=== PATIENT | female | born 1995 | race American Indian/Alaskan Native ===

== ENCOUNTER 2020-06-15 09:53 | Emergency (ER) | payer SELFPAY ==
[2020-06-15 10:20] VITALS: BP 114/78
--- NOTE | 2020-06-15 11:11 | Emergency Department Report ---
ED General Adult HPI - General Chief complaint: Dental/Oral Stated complaint: TOOTH ACHE Time Seen by Provider: 06/15/20 11:00 Source: patient Mode of arrival: Ambulatory Limitations: No Limitations - History of Present Illness Initial comments: 24-year-old -[place] female patient presents with complaints of left upper dental pain x5 days. She reports she has had intermittent dental pain in the area for a year and had a cavity filled in the area about 6 to 7 months ago. Patient states the pain suddenly began again and Advil and naproxen are not helping. She rates her current pain as a 9/10 in severity. She denies any fever/chills/sweats, facial swelling, difficulty opening/closing her jaw, or dysphagia - Related Data Previous Rx's Medication Instructions Recorded Last Taken Type Acetaminophen/Codeine [Tylenol 1 tab PO Q6H PRN #12 tab 06/15/20 Unknown Rx /Codeine # 3 tab] Clindamycin [Clindamycin CAP] 300 mg PO Q6H 10 Days #40 capsule 06/15/20 Unknown Rx Allergies Allergy/AdvReac Type Severity Reaction Status Date / Time Penicillins Allergy Rash Verified 06/15/20 10:18 ED Review of Systems ROS: Stated complaint: TOOTH ACHE Other details as noted in HPI Constitutional: denies: chills, fever, malaise ENT: dental pain. denies: throat pain Respiratory: denies: cough, shortness of breath Gastrointestinal: denies: nausea, vomiting Skin: denies: change in color ED Past Medical Hx - Past Medical History Previous Medical History?: No - Surgical History Past Surgical History?: No - Medications Home Medications: Home Medications Medication Instructions Recorded Confirmed Last Taken Type Acetaminophen/Codeine [Tylenol 1 tab PO Q6H PRN #12 tab 06/15/20 Unknown Rx /Codeine # 3 tab] Clindamycin [Clindamycin CAP] 300 mg PO Q6H 10 Days #40 capsule 06/15/20 Unknown Rx ED Physical Exam - General Limitations: No Limitations General appearance: alert, in no apparent distress - Head Head exam: Present: atraumatic, normocephalic - Eye Eye exam: Present: normal appearance. Absent: scleral icterus - Expanded ENT Exam Expanded Mouth exam: Absent: drooling, trismus, muffled voice Teeth exam: Present: dental caries 1 - Dental Tenderness, Other (Deep dental decay noted mild surrounding erythema noted with tenderness to palpation no overlying facial swelling;) - Neck Neck exam: Present: normal inspection, full ROM. Absent: lymphadenopathy - Neurological Exam Neurological exam: Present: alert, oriented X3, normal gait - Psychiatric Psychiatric exam: Present: normal affect, normal mood - Skin Skin exam: Present: warm, dry, intact, normal color. Absent: rash ED Course Vital Signs 06/15/20 10:19 Temperature 98.5 F Pulse Rate 66 Respiratory 16 Rate Blood Pressure 114/78 [Right] O2 Sat by Pulse 99 Oximetry ED Medical Decision Making - Medical Decision Making 24-year-old -[place] female patient presents with complaints of left up per dental pain x5 days. She reports she has had intermittent dental pain in the area for a year and had a cavity filled in the area about 6 to 7 months ago. Patient states the pain suddenly began again and Advil and naproxen are not helping. She rates her current pain as a 9/10 in severity. She denies any fever/chills/sweats, facial swelling, difficulty opening/closing her jaw, or dysphagia Dental decay with tenderness noted on exam. Pt has allergy to penicillin, clindamycin Rx given. Pt also provided with dental clinic list and informed to follow up within 24-48 hours. She is well appearing and stable for d/c home. Strict return precautions were discussed in detail with patient who verbalized understanding. Critical care attestation.: If time is entered above; I have spent that time in minutes in the direct care of this critically ill patient, excluding procedure time. ED Disposition Clinical Impression: Dental infection Disposition: DC- TO HOME OR SELFCARE Is pt being admited?: No Condition: Stable Instructions: Dental Abscess Additional Instructions: Please follow-up with a dental specialist from the list provided within 24 to 48 hours Prescriptions: Clindamycin [Clindamycin CAP] 300 mg PO Q6H 10 Days #40 capsule Acetaminophen/Codeine [Tylenol /Codeine # 3 tab] 1 tab PO Q6H PRN #12 tab PRN Reason: Pain , Severe (7-10)
== END 2020-06-15 11:40 | disposition home or self-care (01) ==
LOC: ED 09:53
DX: K02.9 Dental caries, unspecified (principal); Z88.0 Allergy status to penicillin
CPT/HCPCS: 99282

== ENCOUNTER 2020-06-30 19:39 | Emergency (ER) | payer SELFPAY ==
[2020-06-30 19:45] VITALS: BP 138/84
== END 2020-06-30 22:20 | disposition left against medical advice (07) ==
LOC: ED 19:39
DX: K08.89 Other specified disorders of teeth and supporting structures (principal); Z53.21 Procedure and treatment not carried out due to patient leaving prior to being seen by health care provider